=== PATIENT | male | born 1935 | race Caucasian/White ===

== ENCOUNTER → 2020-09-08 | Outpatient (CLI) | payer OTHER ==
[~2020-09-08] MED LIST: AMLO10TA PO; ECOT81TA5 PO; FISH1000 PO; GLIP5TAB8 PO; LISI40TA4 PO; OMEP-218 PO; PROAAER10 INH; SPIR12.9 INH; TOPR100T PO; ZOCO80TA PO
== END ==
LOC: M RAD 14:16
PROVIDERS: ATTEND Internal Medicine Hematology & Oncology
DX: D75.1 Secondary polycythemia (principal); D47.2 Monoclonal gammopathy

== ENCOUNTER → 2021-03-27 | Outpatient (CLI) | payer OTHER ==
[~2021-03-27] MED LIST changes: +COVI100V IM; +GASTROGRAFIN SOLUTION 30ML (Q9963) As Ordered ONE; +ISOVUE-370 76% 100ML VIAL As Ordered ONE
--- NOTE | 2021-03-27 14:11 | REP ---
INDICATION: MGUS, F/U NODULE. COMPARISON: 09/08/2020 TECHNIQUE: Standard helical technique after intravenous administration of 100 cc Isovue 370 and oral bowel preparatory contrast administration. FINDINGS: The liver, spleen, pancreas, adrenal glands, and kidneys are unchanged. There is cholelithiasis status quo. There is no significant change in appearance of the bowel loops or the mesenteries. Postoperative changes are noted status quo. There is no evidence of free fluid or free air. There is no significant change in the appearance of the abdominal aorta or para-aortic regions. No mass or adenopathy has developed. There is prostatomegaly status quo. Bone window technique throughout the examination shows no significant change in appearance of the osseous structures. There is evidence of diffuse bony demineralization without evidence of a distinct lytic or blastic lesion. IMPRESSION: No significant change compared to the prior CT examination of the abdomen and pelvis. There is cholelithiasis status quo. There is prostatomegaly status quo. No acute changes have developed since the last exam. <Electronically signed by Guillermo Henry > 03/27/21 [id number]
--- NOTE | 2021-03-27 14:18 | REP ---
INDICATION: MGUS, F/U NODULE COMPARISON: 09/08/2020 the only prior a noncontrast enhanced exam TECHNIQUE: Standard helical technique after the intravenous administration of 100 cc Isovue 370 FINDINGS: The mediastinum and pulmonary eulalia have not changed significantly. Small and borderline 2 mildly enlarged lymph nodes are noted status quo. There are no pleural or pericardial effusions. There is right main pulmonary arterial enlargement status quo. Bone window technique throughout the examination shows no significant change in appearance of the osseous structures. Evaluation of the lung [place] shows no change in appearance of the right lower lobe CP angle nodule. By my measurement this measures 9 mm on both exams. A new nodule has developed in the left lower lobe since the last examination. This has a maximal dimension of 1 point 4 cm. Previously this represented only a focal zone of fibrotic change. There is an unchanged pleural based asymmetric density in the inferior lingula. There are advanced chronic emphysematous changes status quo. IMPRESSION: 1. Stable right lung nodule as described above. 2. New left lung nodule as described above. According to the revised Fleischner society criteria this represents a category 4A lesion for which a 3 month follow-up CT is recommended. 3. Advanced but stable appearing emphysematous changes. 4. Evidence of pulmonary arterial hypertension unchanged. 5. Other findings as described above. <Electronically signed by Guillermo Henry > 03/27/21 [id number]
== END ==
LOC: M RAD 09:24
PROVIDERS: ATTEND Internal Medicine Hematology & Oncology
DX: R91.1 Solitary pulmonary nodule (principal); D47.2 Monoclonal gammopathy
CPT/HCPCS: 71260; 74177; Q9963; Q9967

== ENCOUNTER → 2021-05-11 | Outpatient (CLI) | payer OTHER ==
[~2021-05-11] MED LIST changes: -GASTROGRAFIN SOLUTION 30ML (Q9963) As Ordered ONE; -ISOVUE-370 76% 100ML VIAL As Ordered ONE
--- NOTE | 2021-05-11 11:23 | REP ---
INDICATION: ASSESS FOR LEFT LESION COMPARISON: None. TECHNIQUE: Adult bone survey including AP views of the pelvis, bilateral humeri and femurs as well as AP/lateral views of the skull, and cervical through lumbosacral spine. FINDINGS: Generalized age-related osteopenia and degenerative changes are noted throughout the examination. No focal lytic, sclerotic, or blastic lesions are identified to suggest primary osseous pathology or osseous metastatic disease. IMPRESSION: Generalized age-related osteopenia and degenerative changes. No focal osseous abnormality identified. <Electronically signed by Gabe Mcbride > 05/11/21 [id number]
== END ==
LOC: M RAD 10:33
DX: M85.88 Other specified disorders of bone density and structure, other site (principal)

== ENCOUNTER → 2021-06-27 | Outpatient (CLI) | payer OTHER ==
[~2021-06-27] MED LIST changes: +OMEP-173 PO; -OMEP-218 PO
== END ==
LOC: M RAD 16:20
PROVIDERS: ATTEND Physician Assistant
DX: J43.9 Emphysema, unspecified (principal); R91.8 Other nonspecific abnormal finding of lung field; K80.20 Calculus of gallbladder without cholecystitis without obstruction

== ENCOUNTER → 2021-10-03 | Outpatient (CLI) | payer OTHER ==
[~2021-10-03] MED LIST changes: +ATOR1TAB21 PO; +CALC500C16 PO; +D 101000 PO; +PRESCAP4 PO
== END ==
LOC: M RAD 10:59
PROVIDERS: ATTEND Physician Assistant
DX: R91.8 Other nonspecific abnormal finding of lung field (principal); J44.9 Chronic obstructive pulmonary disease, unspecified